=== PATIENT | male | born 2005 | race Caucasian/White ===

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

== ENCOUNTER 2023-03-09 13:00 | Emergency (ER) | payer OTHER, SELFPAY ==
[2023-03-09 13:11] VITALS: BP 136/86; PULSE 103; RESP 16; TEMP 36.8; O2SAT 100
--- NOTE | 2023-03-09 14:17 | ED.ANXIETY ---
HPI - Anxiety General Chief Complaint: Dizziness Stated Complaint: Anxiety,Dizziness Time Seen by Provider: 03/09/23 13:55 Source: patient, family (father) and RN notes reviewed Mode of arrival: ambulatory Limitations: no limitations History of Present Illness HPI narrative: Patient presents today complaining of a one-week history of increased anxiety and panic attacks that have been worsening since onset. Reports symptoms include shaking and feelings of dizziness. States dizziness symptoms are significantly worse when his anxiety symptoms are worsening. Dizziness is not worsened with moving head side to side. He recently started a new job at [employer], which has increased his anxiety even more. He does not have an appointment to initiate care with his new PCP until March 30. He does not currently take anything for anxiety. Dad gave him 1/2 of dad's own Sertraline for his symptoms, which didn't help much. Related Data Allergies Allergy/AdvReac Type Severity Reaction Status Date / Time Penicillins AdvReac Mild Hives Verified 03/09/23 13:52 Review of Systems Review of Systems: CONSTITUTIONAL: Denies body aches, fever, chills, or sweats. EYES: Denies visual changes, redness, or discharge. ENT: Denies rhinorrhea, congestion, sore throat, or otalgia. CARDIOVASCULAR: Denies chest pain, palpitations, or edema. RESPIRATORY: Denies cough or dyspnea. GASTROINTESTINAL: Denies abdominal pain, nausea, vomiting, or diarrhea. GENITOURINARY: Denies dysuria or hematuria. SKIN: Denies rash, itching, or wounds. MUSCULOSKELETAL: Denies back pain, joint pain, or myalgia. NEUROLOGIC: Denies headache, numbness, tingling, or weakness.+ dizziness PSYCH: + anxiety PMFSH Comments At time of signature, I have reviewed and agree with nursing past medical, surgical, social and family history unless otherwise noted. Please see nursing chart for further information. There is no relevant family history pertinent to the presenting complaint Exam Narrative: GENERAL: Well-appearing, well-nourished, and in no acute distress. HEAD: Normocephalic, atraumatic. EYES: EOMI. PERRL. No nystagmush. No redness or drainage. Conjunctivae normal. ENT: Mucous membranes pink and moist. Nares clear. No rhinorrhea. TMs normal bilaterally. Throat normal. Uvula midline. NECK: Normal AROM. Supple. No lymphadenopathy. CHEST: No respiratory distress. Clear to auscultation. HEART: Regular rate and rhythm. No murmur appreciated. EXTREMITIES: Normal range of motion. No edema. SKIN: Warm, dry, no rash. Capillary refill normal. Normal skin turgor. NEURO: No focal deficits. Alert and oriented x3. Gait steady. Hand museum guide equal and strong bilaterally. Dorsiflexion and plantar flexion equal and strong against resistance. PSYCH: Anxious Course Course Level of Care: Express Care Visit Vital Signs Vital signs: Vital Signs Temperature 98.3 F 03/09/23 13:11 Pulse Rate 103 H 03/09/23 13:11 Respiratory Rate 16 03/09/23 13:11 Blood Pressure 136/86 03/09/23 13:11 Pulse Oximetry 100 03/09/23 13:11 Oxygen Delivery Room Air 03/09/23 13:11 Temperature 98.3 F 03/09/23 13:11 Pulse Rate 103 H 03/09/23 13:11 Respiratory Rate 16 03/09/23 13:11 Blood Pressure 136/86 03/09/23 13:11 Pulse Oximetry 100 03/09/23 13:11 Oxygen Delivery Room Air 03/09/23 13:11 Reviewed. Pt has been instructed to follow up with his PCP regarding his elevated blood pressure today. MDM - Anxiety MDM Narrative Medical decision making narrative: Symptoms are likely due to panic attack. Will prescribe hydroxyzine for acute anxiety. Instructed patient to go to the ER with worsening symptoms. Anticipatory guidance given. Differential Diagnosis Differential diagnosis: Likely panic disorder and acute anxiety Critical Care Time Critical Care Time Critical Care Time: No Discharge Plan Discharge Clinical Impression: Panic attack Patient Dispos
== END 2023-03-09 14:26 | disposition home or self-care (01) ==
PROVIDERS: Emergency Provider Nurse Practitioner; PCP Physician Assistant
DX: F41.0 Panic disorder [episodic paroxysmal anxiety] (principal)
CPT/HCPCS: 99213; G0463

== ENCOUNTER 2023-03-11 18:01 | Emergency (ER) | payer OTHER, SELFPAY ==
[2023-03-11] VITALS (12 sets, daily range): BP systolic 127–154; BP diastolic 70–92; PULSE 74–94; RESP 9–18; TEMP 36.6; O2SAT 99–100
--- NOTE | ~2023-03-11 | XR_ITS ---
EXAMINATION: XR chest 2V DATE: 03/11/2023 21:05 INDICATION: Syncope. Shortness of breath. TECHNIQUE: Frontal and lateral views of the chest were obtained. COMPARISON: Chest 2 views 03/30/2013 FINDINGS: The chest demonstrates clear lungs without pneumonia, pleural effusion, or pneumothorax. Th e heart size is normal. IMPRESSION: 1. No acute cardiopulmonary disease. Reviewed, dictated and finalized at location E.
--- NOTE | 2023-03-11 18:26 | ECG_ITS ---
Measurements Intervals [place] Rate: 102 P: 74 AR: 143 QRS: 86 QRSD: 98 T: -4 QT: 319 QTc: 417 Interpretive Statements SINUS TACHYCARDIA NONSPECIFIC ST & T-WAVE ABNORMALITY- INF/LAT LEADS BORDERLINE ECG COMPARED TO ECG 04/15/2022 09:43:[address] NOW PRESENT ST-T WAVE ABNORMALITY NOW PRESENT Electronically Signed On 03-12-2023 8:12:32 CDT by Joe Martinez D.O.
[2023-03-11 18:39] LABS: Basophils Absolute Auto 0.1 K/mm3 (0.0-0.1); Basophils Percent Auto 0.7 % (0.2-1.2); Eosinophils Absolute Auto 0.1 K/mm3 (0-0.3); Hematocrit 42.3 % (42.0-52.0); Hemoglobin 14.2 g/dL (14.0-18.0); Immature Granulocyte Absolute 0.06 K/mm3 (0.00-0.031); Immature Granulocyte Percent A 0.6 % (0-0.5); Lymphocytes Absolute Auto 2.28 K/mm3 (0.9-3.2); Lymphocytes Percent Auto 22.3 % (18.3-44.2); Mean Corpuscular HGB Conc 33.6 g/dl (32-36); Mean Corpuscular Hemoglobin 30.5 pg (26-34); Mean Platelet Volume 8.3 fl (7.4-10.4); Monocytes Absolute Auto 0.6 K/mm3 (0.1-0.6); Monocytes Percent Auto 6.3 % (2.6-8.5); Neutrophils Absolute Auto 7.1 K/mm3 (1.3-6.7); Neutrophils Percent Auto 69.1 % (45.5-73.1); Platelet Count Result 312 k/mm3 (150-375); Red Blood Count 4.65 M/mm3 (4.6-6.20); Red Cell Distribution Width 11.9 % (11.5-14.5); White Blood Count 10.2 K/mm3 (4.5-10.0)
[2023-03-11 18:49] LABS: Alanine Aminotransferase 31 U/L (6-50); Albumin Level 4.8 g/dL (3.7-5.6); Alkaline Phosphatase 71 U/L (58-237); Anion Gap 9 mmol/L (8-16); Aspartate Amino Transferase 41 U/L (17-59); Bilirubin,Total 0.9 mg/dL (0.2-1.3); Blood Urea Nitrogen 15 mg/dL (8-21); Calcium 9.3 mg/dL (8.9-10.7); Carbon Dioxide 27 mmol/L (22-30); Chloride 102 mmol/L (98-107); Estimated CRCL calculation 108 ml/min; Estimated Glomerular Filt Rate > 60; Glucose 98 mg/dL (65-110); Potassium 4.1 mmol/L (3.4-5.0); Sodium 138 mmol/L (134-143)
--- NOTE | 2023-03-11 20:15 | ED.DIZZY ---
HPI - Dizziness General Chief Complaint: Syncope Stated Complaint: SOB Time Seen by Provider: 03/11/23 19:57 History of Present Illness HPI Narrative: 17-year-old male here for evaluation of multiple medical complaints. Patient states that he has felt lightheaded and dizzy over the past 2 weeks, has had some tightness in his chest and a little bit short of breath. Also feels somewhat dissociated. No drug or alcohol use. He has attributed his symptoms to anxiety and panic attacks, symptoms have gotten worse ever since he got back from school. He was seen in urgent care and was given hydroxyzine which she states is not helping. He does not take any daily he medicine for anxiety. Denies any suicidal or homicidal ideation, audiovisual hallucinations Related Data Allergies Allergy/AdvReac Type Severity Reaction Status Date / Time Penicillins AdvReac Mild Hives Verified 03/09/23 13:52 Review of Systems Review of Systems: Gen: Denies fevers or chills Eyes: Denies eye pain or visual change ENT: Denies congestion Respiratory: Denies shortness of breath or cough CV: Denies chest pain or palpitations GI: Denies abdominal pain nausea, emesis or diarrhea : denies burning, urgency, frequency or hematuria Musculoskeletal: Denies back pain or muscle pain Neuro: Denies numbness, tingling, weakness or focal weakness Skin: Denies rash Except as documented, all other systems reviewed and negative Exam Narrative: APPEARANCE: Well appearing, no pain in distress, well-nourished. Head: Normocephalic and atraumatic. EYES: PERRLA/EOMI, conjunctivae clear NOSE: No nasal drainage EARS: External ear normal in appearance THROAT: Oropharynx is clear. Mucous membranes are moist. NECK: Supple. No adenopathy, no masses. RESPIRATORY: Airway patent, respirations nonlabored. Clear to auscultation bilaterally, no rales, rhonchi, wheezing. CARDIOVASCULAR: Regular rate and rhythm without murmurs, rubs, or gallops. ABDOMINAL: Normoactive bowel sounds. Soft, nontender, nondistended. No rebound tenderness or guarding. MUSCULOSKELETAL: Extremities are warm and well-perfused. Moves all extremities well. No edema. NEURO: Normal speech. No focal neurologic deficits. SKIN: Skin is warm and dry. No rashes. PSYCHIATRIC: Normal affect/mood.. Course Vital Signs Vital signs: Vital Signs Temperature 98 F 03/11/23 18:20 Pulse Rate 92 03/11/23 18:20 Respiratory Rate 18 03/11/23 18:20 Blood Pressure 147/92 H 03/11/23 18:20 Pulse Oximetry 100 03/11/23 18:20 Oxygen Delivery Room Air 03/11/23 18:20 Temperature 98 F 03/11/23 18:20 Pulse Rate 77 03/11/23 21:30 Respiratory Rate 12 03/11/23 21:30 Blood Pressure 132/75 03/11/23 21:30 Pulse Oximetry 99 03/11/23 21:30 Oxygen Delivery Room Air 03/11/23 18:20 MDM - Dizziness MDM Narrative Medical decision making narrative: 17-year-old male here due to symptoms that are likely due to anxiety. He is nontoxic in appearance and has normal vital signs, labs, EKG, chest x-ray are normal. Patient feeling somewhat improved after anxiolytics. He is not suicidal or homicidal, denies any ingestions and has no symptoms of toxidrome today. He is stable for outpatient management and follow-up with his PMD, discussed possibility for starting SSRI. Father is requesting this to be started out of the ED, plan for need for long-term follow-up before starting these medicines and risks of doing so in the short-term. They both voiced understanding and will keep appointment with her primary care doctor. Lab Data 03/11/23 18:33 03/11/23 18:33 Labs: Lab Results 03/11/23 03/11/23 Range/Units 18:33 20:32 WBC 10.2 H (4.5-10.0) K/mm3 RBC 4.65 (4.6-6.20) M/mm3 Hgb 14.2 (14.0-18.0) g/dL Hct 42.3 (42.0-52.0) % MCV 91.0 (80-100) fl MCH 30.5 (26-34) pg MCHC 33.6 (32-36) g/dl RDW 11.9 (11.5-14.5) % Plt Count 312 (150-375) k
[2023-03-11] MEDS: LORazepam (*CRX) 0.5 MG TABLET PO (20:32)
[2023-03-11 21:06] LABS: Troponin I < 0.012 ng/mL (0.000-0.034)
== END 2023-03-11 21:45 | disposition home or self-care (01) ==
PROVIDERS: Emergency Medicine; Emergency Provider Physician Assistant; PCP Physician Assistant
DX: F41.0 Panic disorder [episodic paroxysmal anxiety] (principal); R00.0 Tachycardia, unspecified; R94.31 Abnormal electrocardiogram [ECG] [EKG]
CPT/HCPCS: 36415; 71046; 80053; 84484; 85025; 93005; 99284; A9270